=== PATIENT | male | born 1995 | race Two or more races ===

== ENCOUNTER 2016-10-10 19:06 | Emergency (ER) | payer BC ==
--- NOTE | 2016-10-10 19:56 | ED ---
Headache - HPI Summary HPI Summary: 21M presents with headache, pressure behind eyes and side of temporal for a day. He states that he feels his vision is blurry but denies any double vision or photophobia. He states he has three episodes of these symptom in the past week. He states that it lasts a couple hours and then goes away. His headache is located in the front of his head on both sides. He states that he has never had this pain before. He admits to some sinus congestion. He denies any fever or neck stiffness. He denies any history of sinus infections or allergies. He denies any sore throat or cough. He admits to occasionally chest pain in the center of his chest that is mild. He is a nonsmoker. He does have a family history of heart disease. He denies any SOB. - History Of Current Complaint Chief Complaint: EDEyeProblem Stated Complaint: BLURRED VISION/HEADACHE/CHEST PAIN Time Seen by Provider: 10/10/16 19:44 - Allergies/Home Medications Allergies/Adverse Reactions: Allergies Allergy/AdvReac Type Severity Reaction Status Date / Time No Known Allergies Allergy Verified 10/10/16 19:17 PMH/Surg Hx/FS Hx/Imm Hx Endocrine/Hematology History: Denies: Hx Diabetes Cardiovascular History: Denies: Hx Hypertension, Hx Myocardial Infarction Respiratory History: Denies: Hx Asthma Infectious Disease History: No Infectious Disease History: Denies: Traveled Outside the [place] in Last 30 Days - Family History Known Family History: Positive: Cardiac Disease - Social History Alcohol Use: Weekly Substance Use Type: Reports: Other Substance Use Comment - Amount & Last Used: LSD Smoking Status (MU): Never Smoked Tobacco Review of Systems Negative: Fever Positive: Chest Pain Negative: Shortness Of Breath, Cough Positive: Headache All Other Systems Reviewed And Are Negative: Yes Physical Exam Triage Information Reviewed: Yes Vital Signs On Initial Exam: Initial Vitals Temp Pulse Resp BP Pulse Ox 98.0 F 100 15 155/90 100 10/10/16 19:10 10/10/16 19:10 10/10/16 19:10 10/10/16 19:10 10/10/16 19:10 Vital Signs Reviewed: Yes Appearance: Positive: Well-Appearing Skin: Positive: Warm, Dry Head/Face: Positive: Normal Head/Face Inspection Eyes: Positive: Normal, EOMI, RUBEN, Conjunctiva Clear ENT: Positive: Normal ENT inspection, Pharynx normal, TMs normal, Other - no sinus tenderness Neck: Positive: Supple, Nontender, No Lymphadenopathy Respiratory/Lung Sounds: Positive: Clear to Auscultation, Breath Sounds Present Cardiovascular: Positive: Normal, RRR Neurological: Positive: Sensory/Motor Intact, Alert, Oriented to Person Place, Time, CN Intact II-III - Laurita Coma Scale Best Eye Response: 4 - Spontaneous Best Motor Response: 6 - Obeys Commands Best Verbal Response: 5 - Oriented Diagnostics - Vital Signs Vital Signs Temp Pulse Resp BP Pulse Ox 10/10/16 19:10 98.0 F 100 15 155/90 100 - Laboratory Lab Statement: Any lab studies that have been ordered have been reviewed, and results considered in the medical decision making process. - CT head CT Interpretation: No Acute Changes CT Interpretation Completed By: Radiologist - EKG No standard instances Cardiac Rate: NL EKG Rhythm: Sinus Rhythm Headache Course/Dx - Course Course Of Treatment: 21M presents with headache today. He also admits to blurry vision which he describes as difficulty concentrating. he admits to sinus congestion. he also admits to occasionally chest pain. got an EKG and it was normal. patient refused any lab work for the chest pain or headache. got CT and it was normal. normal neuro exam. sinus looked normal on CT. explained likely due to sinuses that is causing headache and to take an antihistamine and ibuprofen and follow up with health center if no improvement. patient understands and agrees with plan - Diagnoses Differential Diagnosis/HQI/PQRI: Sinus Headache, Tension Headache, Viral Syndrome Provider Diagnoses: Headache Discharge - Discharge Plan Condition: Good Disposition: HOME Patient Education Materials: Acute Headache (ED) Referrals: [facility] [place] [Primary Care Provider] - Additional Instructions: Take Tylenol or ibuprofen for pain every 6 hours Take antihistamine such as zytrec every day for sinuses Use saline rinses up the nose Follow up with [facility] if no improvement Return to ED if develop any new or worsening symptoms
--- NOTE | 2016-10-10 20:37 | RAD ---
Indication: Headaches, blurry vision. CT of the brain was performed without IV contrast. Ventricular structures are midline. No midline shift is noted. The extraction spaces are unremarkable. There is no evidence of intracranial mass or hemorrhage. No other high or low density lesions are identified. Mastoid air cells and paranasal sinuses are unremarkable. The orbits are unremarkable. IMPRESSION: NO INTRACRANIAL MASS OR HEMORRHAGE IS NOTED.
[2016-10-10 22:43] VITALS: BP 143/80
== END 2016-10-10 21:21 | disposition home or self-care (01) ==
LOC: EDBD → ED 19:06
DX: R51 Headache (principal); R07.9 Chest pain, unspecified
CPT/HCPCS: 70450; 93005; 99282